=== PATIENT | female | born 1975 | race Caucasian/White ===

== ENCOUNTER 2016-05-28 09:21 | Emergency (ER) | payer OTHER ==
[~2016-05-28] VITALS: Ht 172.7 cm; Wt 68.0 kg
[~2016-05-28 09:21] MED LIST: ATIVAN1 M1 PO; AXERT12.5 MG PO; BACTRIM DS 8001 TA1 PO; BUPAP1 TA1 PO; BUSPIRONE HCL15 MG PO; CORTISPORIN15 GM TP; DIAZEPAM5 M1 PO; FOLIC ACID 1MG T1 MG PO; HYDROCORT 0.5%30 G1 TP; IMITREX100 MG PO; LORTAB 5/500 501 TAB PO; NOMEDS XX; PRENATAL PLUS1 TA1 PO; Pseudoephedrine30 MG PO; SERTRALINE 50MG50 MG PO; VALTREX1 GM PO; VISTARIL50 MG PO; VOLTAREN GEL1% TD; ZITHROMAX Z PA250 MG PO; ZOFRAN4 MG PO; ZOVIRAX 5% OIN1 INCH EX; Zofran4 MG PO; [UNRECOGNIZED DRUG - OTHER] PO
[2016-05-28] MEDS ORDERED: ESTRADIOL1 EAC1 TD (10:43)
[2016-05-28] MEDS ORDERED: VITAMIN D1000 IU PO (10:43)
--- NOTE | 2016-05-28 10:50 | Urgent Treatment Center Report ---
History of Present Issue Date/Time Seen by Provider 05/28/16 1049 Visit Reason Pt arrived:Walked Presenting Problem:PT STATES FEVER, COUGH, CHEST CONGESTION, BODY ACHES AND VOMITING LAST NIGHT. STATES TAKING TYLENOL AT 0800. STATES SYMPTOMS BEGAN YESTERDAY Location if Accident: Onset of symptoms date/time:05/27/16/ or onset unknown for:MEDICAL HX UNKNOWN Have you (or family members/close friends) recently traveled outside the [place]? N If Yes, where/when: Have you had exposure to infectious disease within the past month? TB? Other? Specify: c/o cough, fever, bodyaches, sore throat starting last night. Tmax 102. Tylenol helps. Last dose 0800. Hasn't had flu vaccine. Daughter sick currently with similiar symptoms but x 2-3 weeks. Vomited once last night after coughing. Productive w/ occasionally green sputum. No improvement w/ mucinex. Occasionally SOA after coughing. Denies wheezing. nonsmoker. Source patient Exam Limitations no limitations ALLERGIES Coded Allergies: cephalexin (From [employer]) (05/28/16) Home Medications Reported Medications Estradiol 1 EACH TD 2XWEEK #24 CHOLECALCIFEROL (VITAMIN D3) (Vitamin D3) 1,000 IUNITS PO DAILY History Medical History General CAD? No Angina: No [place]: No Hypertension? No Hyperlipidemia? No CHF? No DVT? No PE? No COPD? No Asthma? No Anemia? No GERD? No Gastric ulcers? No GI Bleed? No Hernia? No Thyroid Problems? No Hypothyroidism? No CVA? No Seizures? No Diabetes? No Insulin Dependent: No Insulin Pump: No Home FSBS? No Renal Insuffiency? No UTI? No Stones? No BPH? No GB Disease: No Nephritic Syndrome? No Asplenia? No Hepatitis? No Sickle Cell Disease? No Arthritis? No Migraines? No Cataracts? No Glaucoma? No MRSA? No HIV? No TB? No Anxiety? Yes Depression? Yes Cancer? No More? 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 denies: ear pain, ear discharge, nose congestion. Respiratory see HPI Cardiovascular denies chest pain Gastrointestinal denies abdominal pain, denies diarrhea, denies nausea Musculoskeletal see HPI Skin denies rash Psychiatric/Neurological denies no symptoms reported Physical Exam Vital Signs Vital Signs Date Time Temp Pulse Resp B/P Pulse O2 O2 Flow FiO2 Ox Delivery Rate 05/28 1040 99.5 100 20 118/74 98 General Appearance normal appearance, no apparent distress Eye Exam - bilateral eye normal exam Ear, Nose, Throat normal ENT inspection Neck non-tender, supple Respiratory Status No: respiratory distress, non productive cough. Lung Sounds anterior: lungs clear. posterior: lungs clear. bilateral: lungs clear. Cardiovascular regular rate/rhythm, no murmur Neurologic alert Skin warm/dry Lymphatic no adenopathy (cervical) Medical Decision Making LABS/Meds/Orders Pt receiving controlled substance in ED? No Results/Orders Laboratory Tests 05/28/16 1046: Influenza Type A Ag NOT DETECTED, Influenza Type B Ag NOT DETECTED, Group A Strep Screen NOT DETECTED Orders Procedure Date/time Status [facility] STREP SCREEN 05/28 1046 Active [facility] FLU A,B 05/28 1046 Active Departure Departure Time of Disposition 1109 Disposition DC Home or Self Care(routine) Clinical Impression Primary Impression: Viral respiratory illness Condition STABLE Referrals SENIA ADHIKARI (PCP/Family) Immediately for new or worsening symptoms or if no noticeable improvement over the next 72 hours. Patient Instructions Albuterol Oral Inhalation, DI for Viral Upper Respiratory Infection -- Adult Additional Instructions Increase fluids Rest Alternate tylenol/ibuprofen as discussed for fever/pain warm salt water gargles for sore throat warm fluids to drink Cough syrup should help w/ cough but may cause drowsiness. 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 Seek treatment immediately for new or worsening symptoms or if no improvement over the next 72 hours. Discharge Counseling Counseled pt/family regarding diagnosis, test results, medications/RX, home care, follow up needs Prescriptions Current Visit Scripts ALBUTEROL (Proventil Hfa Inhaler) 1-2 PUFF IH Q4-6H PRN PRN SOA/Wheezing #1 CAN D-METHORPHAN HB/P-EPD HCL/BPM (Bromfed Dm Cough Syrup) 10 ML PO QIDP PRN cough #240 ML at 1116
--- NOTE | 2016-05-28 10:50 | Urgent Treatment Center Report ---
History of Present Issue Date/Time Seen by Provider 05/28/16 1049 Visit Reason Pt arrived:Walked Presenting Problem:PT STATES FEVER, COUGH, CHEST CONGESTION, BODY ACHES AND VOMITING LAST NIGHT. STATES TAKING TYLENOL AT 0800. STATES SYMPTOMS BEGAN YESTERDAY Location if Accident: Onset of symptoms date/time:05/27/16/ or onset unknown for:MEDICAL HX UNKNOWN Have you (or family members/close friends) recently traveled outside the [place]? N If Yes, where/when: Have you had exposure to infectious disease within the past month? TB? Other? Specify: c/o cough, fever, bodyaches, sore throat starting last night. Tmax 102. Tylenol helps. Last dose 0800. Hasn't had flu vaccine. Daughter sick currently with similiar symptoms but x 2-3 weeks. Vomited once last night after coughing. Productive w/ occasionally green sputum. No improvement w/ mucinex. Occasionally SOA after coughing. Denies wheezing. nonsmoker. Source patient Exam Limitations no limitations ALLERGIES Coded Allergies: cephalexin (From [employer]) (05/28/16) Home Medications Reported Medications Estradiol 1 EACH TD 2XWEEK #24 CHOLECALCIFEROL (VITAMIN D3) (Vitamin D3) 1,000 IUNITS PO DAILY History Medical History General CAD? No Angina: No [place]: No Hypertension? No Hyperlipidemia? No CHF? No DVT? No PE? No COPD? No Asthma? No Anemia? No GERD? No Gastric ulcers? No GI Bleed? No Hernia? No Thyroid Problems? No Hypothyroidism? No CVA? No Seizures? No Diabetes? No Insulin Dependent: No Insulin Pump: No Home FSBS? No Renal Insuffiency? No UTI? No Stones? No BPH? No GB Disease: No Nephritic Syndrome? No Asplenia? No Hepatitis? No Sickle Cell Disease? No Arthritis? No Migraines? No Cataracts? No Glaucoma? No MRSA? No HIV? No TB? No Anxiety? Yes Depression? Yes Cancer? No More? 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 denies: ear pain, ear discharge, nose congestion. Respiratory see HPI Cardiovascular denies chest pain Gastrointestinal denies abdominal pain, denies diarrhea, denies nausea Musculoskeletal see HPI Skin denies rash Psychiatric/Neurological denies no symptoms reported Physical Exam Vital Signs Vital Signs Date Time Temp Pulse Resp B/P Pulse O2 O2 Flow FiO2 Ox Delivery Rate 05/28 1040 99.5 100 20 118/74 98 General Appearance normal appearance, no apparent distress Eye Exam - bilateral eye normal exam Ear, Nose, Throat normal ENT inspection Neck non-tender, supple Respiratory Status No: respiratory distress, non productive cough. Lung Sounds anterior: lungs clear. posterior: lungs clear. bilateral: lungs clear. Cardiovascular regular rate/rhythm, no murmur Neurologic alert Skin warm/dry Lymphatic no adenopathy (cervical) Medical Decision Making LABS/Meds/Orders Pt receiving controlled substance in ED? No Results/Orders Laboratory Tests 05/28/16 1046: Influenza Type A Ag NOT DETECTED, Influenza Type B Ag NOT DETECTED, Group A Strep Screen NOT DETECTED Orders Procedure Date/time Status [facility] STREP SCREEN 05/28 1046 Active [facility] FLU A,B 05/28 1046 Active Departure Departure Time of Disposition 1109 Disposition [place] Home or Self Care(routine) Clinical Impression Primary Impression: Viral respiratory illness Condition STABLE Referrals SENIA ADHIKARI (PCP/Family) Immediately for new or worsening symptoms or if no noticeable improvement over the next 72 hours. Patient Instructions Albuterol Oral Inhalation, DI for Viral Upper Respiratory Infection -- Adult Additional Instructions Increase fluids Rest Alternate tylenol/ibuprofen as discussed for fever/pain warm salt water gargles for sore throat warm fluids to drink Cough syrup should help w/ cough but may cause drowsiness. 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 Seek treatment immediately for new or worsening symptoms or if no improvement over the next 72 hours. Discharge Counseling Counseled pt/family regarding diagnosis, test results, medications/RX, home care, follow up needs Prescriptions Current Visit Scripts ALBUTEROL (Proventil Hfa Inhaler) 1-2 PUFF IH Q4-6H PRN PRN SOA/Wheezing #1 CAN D-METHORPHAN HB/P-EPD HCL/BPM (Bromfed Dm Cough Syrup) 10 ML PO QIDP PRN cough #240 ML at 1116
[2016-05-28 11:08] LABS: UTC STREP SCREEN NOT DETECTED (NOTDETECTED)
[2016-05-28] MEDS ORDERED: PROVENTIL0.09 MG/A1 IH (11:12)
[2016-05-28] MEDS ORDERED: BROMFED DM COU118 ML PO (11:12)
[2016-05-28 11:16] VITALS: BP 118/74
== END 2016-05-28 11:17 | disposition home or self-care (01) ==
LOC: UTC 09:21
PROVIDERS: Nurse Practitioner Family
DX: B34.9 Viral infection, unspecified (principal)

== ENCOUNTER 2017-01-22 05:55 | Emergency (ER) | payer OTHER ==
[~2017-01-22] VITALS: Ht 172.7 cm; Wt 65.8 kg
[~2017-01-22 05:55] MED LIST changes: +BROMFED DM COU118 ML PO; +ESTRADIOL1 EAC1 TD; +PROVENTIL0.09 MG/A1 IH; +VITAMIN D1000 IU PO
--- NOTE | 2017-01-22 06:05 | Emergency Room Report ---
History of Present Illness Time Seen by 0600 Presenting Problem in Triage Pt arrived:Walked Presenting Problem:PT C/O MIGRAINE AND N/V FOR A SEVERAL HOURS. 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 N Clinical Suspician of Infection? N Mental Status: 1 - Regular (Normal Baseline) Sepsis Risk:Low Sepsis Risk Have you (or family members/close friends) recently traveled outside the [place]? N If Yes, where/when: Have you had exposure to infectious disease within the past month? N TB? Other? Specify: Source patient, RN notes reviewed, family, old records Exam Limitations no limitations Comment pt with bitemp atkinson with n/v over the last hr - has hx of migraines and recently rx for bronchitis - no fever or neuro sx and no rash or trauma Cardiac Chest Pain Chest pain indicative of cardiac No Timing/Duration this morning Severity moderate ALLERGIES Coded Allergies: cephalexin (From [employer]) (05/28/16) Home Medications Active Scripts ALBUTEROL (Proventil Hfa Inhaler) 1-2 PUFF IH Q4-6H PRN PRN SOA/Wheezing #1 CAN Prov: 05/28/16 D-METHORPHAN HB/P-EPD HCL/BPM (Bromfed Dm Cough Syrup) 10 ML PO QIDP PRN cough #240 ML Prov: 05/28/16 Reported Medications Estradiol 1 EACH TD 2XWEEK #24 CHOLECALCIFEROL (VITAMIN D3) (Vitamin D3) 1,000 IUNITS PO DAILY History Medical History General CAD? No Angina: No [place]: No Hypertension? No Hyperlipidemia? No CHF? No DVT? No PE? No COPD? No Asthma? No Anemia? No GERD? No Gastric ulcers? No GI Bleed? No Hernia? No Thyroid Problems? No Hypothyroidism? No CVA? No Seizures? No Diabetes? No Insulin Dependent: No Insulin Pump: No Home FSBS? No Renal Insuffiency? No End Stage Renal Disease? No UTI? No Stones? No BPH? No GB Disease: No Nephritic Syndrome? No Asplenia? No Hepatitis? No Sickle Cell Disease? No Arthritis? No Migraines? No Cataracts? No Glaucoma? No MRSA? No HIV? No TB? No Anxiety? Yes Depression? Yes Cancer? No More? 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 Respiratory denies cough, denies shortness of breath Cardiovascular denies chest pain, denies palpitations, denies syncope Gastrointestinal see HPI, nausea, vomiting Genitourinary denies: dysuria, frequency, hesitancy, hematuria. Musculoskeletal denies back pain, denies joint pain, denies joint swelling, denies neck pain Skin denies rash Psychiatric/Neurological see HPI, headache, denies seizure Physical Exam Vital Signs Vital Signs Date Time Temp Pulse Resp B/P Pulse O2 O2 Flow FiO2 Ox Delivery Rate 01/22 0651 20 01/22 0558 98.0 87 20 144/85 98 - WBC >12,000 or <4,000 or 10% bands? 2 or more SIRS Criteria Met? B/P:144/85 MAP:104 Creatinine >2.0? UA output<0.5ml/kg/hr for 2 hrs? Platelet count >100,000? Lactate >2.0mmol/1? INR >1.2 or PTT > than 60 sec? Evidence of Organ Dysfunction? Provider documented clinical suspician of infection? N Sepsis Criteria Count: 1 Sepsis Risk: Low Sepsis Risk General Appearance no apparent distress Eye Exam - bilateral eye PERRL, bilateral eye EOMI Ear, Nose, Throat normal ENT inspection Neck supple Respiratory Status No: respiratory distress. Cardiovascular regular rate/rhythm Peripheral Pulses Pulses normal Yes Gastrointestinal soft Extremities normal inspection Strength 4 Upper Ext (L), 4 Upper Ext (R), 4 Lower Ext (L), 4 Lower Ext (R) Neurologic alert, respiratory care practitioner II-XII nml as tested, no motor/sensory deficits Glascow Coma Scale Glascow Coma Scale Response Value EYE response: 4 Spontaneously 4 MOTOR response: 6 OBEYS 6 VERBAL response: 5 Oriented & Converses 5 Total 15 Reflexes Reflexes normal No Mental status normal mood/affect Skin intact Medical Decision Making LABS/Meds/Orders Pt receiving controlled substance in ED? No Results/Orders Laboratory Tests 01/22/17 0643: Sodium 141, Potassium 3.4 L, Chloride 104, Carbon Dioxide 29, BUN 13, Creatinine 0.6, Estimated Creat Clear 131, Estimated GFR (MDRD) 111, Glucose 120 H, Calcium 9.1, Total Bilirubin 0.3, AST 21, ALT 52, Alkaline Phosphatase 106, Total Protein 7.8, Albumin 3.9, Globulin 3.9 H, Albumin/Globulin Ratio 1.0 L, WBC 10.4, RBC 5.32, Hgb 14.2, Hct 44.1, MCV 82.9, RDW 13.5, Plt Count 232, MPV 8.2, Gran % 76.1, Gran # 7.9 H, Lymphocytes % 18.2, Monocytes % 4.7, Eosinophils % 0.6, Basophils % 0.4, Lymphocytes # 1.9, Monocytes # 0.5, Eosinophils # 0.1, Basophils # 0.0, PUBS MCHC 32.1, MCH 26.6 L Current Medication Orders Sig/Kostas Start time Last Medication Dose Route Stop Time Status Admin Sodium Chloride 1,000 ML .STK-MED ONE 01/23 632 DC IV Diphenhydramine HCl 0 .STK-MED ONE 01/22 631 DC .ROUTE Promethazine HCl 0 .STK-MED ONE 01/22 631 DC .ROUTE Sodium Chloride 25 ML .STK-MED ONE 01/22 631 DC IV Diphenhydramine HCl 25 MG ONCE ONE 01/22 630 DC 01/22 IV 01/22 Ketorolac 30 MG ONCE ONE 01/22 630 DC 01/22 Tromethamine IV 01/22 Ketorolac 0 .STK-MED ONE 01/22 630 DC Tromethamine .ROUTE Promethazine HCl 12.5 MG ONCE ONE 01/22 630 DC 01/22 IV 01/22 Sodium Chloride 10 ML PRN PRN 01/22 630 AC IV 01/24 624 Sodium Chloride 1,000 ML .Q1H1M 01/22 630 DC 01/22 IV 01/22 Sodium Chloride 10 ML PRN PRN 01/22 630 AC IV 01/24 624 Sodium Chloride 25 ML ONCE ONE 01/22 630 DC 01/22 IV 01/23 644 0652 Orders Procedure Date/time Status IV SALINE LOCK 01/22 625 Active COMPLETE METABOLIC PANEL 01/22 625 Complete CBC WITH AUTO DIFF 01/22 625 Complete Departure Departure Time of Disposition 0754 Disposition DC Home or Self Care(routine) Clinical Impression Primary Impression: Headache Qualifiers: Headache type: unspecified Headache chronicity pattern: acute headache Intractability: not intractable Qualified Code: R51 - Headache Condition STABLE Patient Instructions DI for Headache Additional Instructions fluids and stop abx and call pcp for follow up Discharge Counseling Counseled pt/family regarding diagnosis, test results, medications/RX, follow up needs ED Critical Care Critical Care No at 0755
[2017-01-22 06:51] LABS: HEMOGLOBIN 14.2 g/dL (12.2-16.2); LYMPH # 1.9 K/mm3 (0.7-4.5); LYMPH % 18.2 % (10-50.0)
[2017-01-22 08:07] VITALS: BP 104/68
--- OUTSIDE RECORDS SUMMARY | 2017-01-26 04:30 | External Medical Summary Rpt | CCD ---
Author Author [employer] Address Unknown Phone Unavailable Purpose Continuity of Care Document - through 2016
--- OUTSIDE RECORDS SUMMARY | 2017-01-26 04:30 | External Medical Summary Rpt | CCD ---
Author Author , FESTUS BILLINGSLEY Address Unknown Phone Purpose Continuity of Care Document - through 2016
--- OUTSIDE RECORDS SUMMARY | 2017-01-26 04:31 | External Medical Summary Rpt | CCD ---
Demographics Preferred Language Danish Marital Status Unknown Adventism Affiliation Unknown Race Unknown Ethnic Group Unknown Author Author , FESTUS BILLINGSLEY Address Unknown Phone Immunization No patient found.
--- OUTSIDE RECORDS SUMMARY | 2017-01-26 04:31 | External Medical Summary Rpt ---
Author Author [employer] Guard[employer], JOSE [employer] Organization [employer] Address Unknown Phone Unavailable
--- OUTSIDE RECORDS SUMMARY | 2017-01-26 04:31 | External Medical Summary Rpt | CCD ---
Demographics Preferred Language Estonian Marital Status Unknown Baptist Affiliation Unknown Race Unknown Ethnic Group Unknown Author Author , FESTUS BILLINGSLEY Address Unknown Phone Immunization No patient found.
== END 2017-01-22 08:07 | disposition home or self-care (01) ==
LOC: ER 05:55
PROVIDERS: Emergency Medicine
DX: R51 Headache (principal)
CPT/HCPCS: J2405